=== PATIENT | female | born 1935 | race Caucasian/White ===

== ENCOUNTER → 2016-09-19 | Outpatient (CLI) | payer MEDICARE ==
[~2016-09-19] MED LIST: ASPIRIN325 M2 PO; ASPIRIN325 MG PO; ATENOLOL25 MG PO; AUGMENTIN 875 M1 TAB PO; B12100 MC1 PO; COREG6.25 MG PO; COZAAR100 MG PO; GLUCOPHAGE1000 MG PO; HYDR12.5C PO; LOSARTAN POTASS1 TA2 PO; LOSARTAN POTASS1 TA9 PO; LOTENSIN HCT 201 TAB PO; METFORMIN500 MG PO; METFORMIN750 M1 PO; NEURONTIN300 MG PO; PEPCID20 MG PO; PREVACID30 M1 PO; PRILOSEC20 MG PO; ROBITUSSIN AC 110 ML PO; TESSALON PERLE200 MG PO; TOPROL XL25 MG PO; VICODIN 5-3001 EACH PO; ZITHROMAX Z PA250 MG PO; [UNRECOGNIZED DRUG - OTHER]
== END | disposition home or self-care (01) ==
LOC: US 15:21
DX: E04.1 Nontoxic single thyroid nodule (principal); I65.23 Occlusion and stenosis of bilateral carotid arteries

== ENCOUNTER 2017-01-15 15:53 | Emergency (ER) | payer MEDICARE ==
[~2017-01-15] VITALS: Ht 162.5 cm; Wt 60.8 kg
[2017-01-15] MEDS ORDERED: CLARITIN10 MG PO (16:05)
[2017-01-15 16:49] LABS: BASO % 0.2 % (0.0-1.0); HEMATOCRIT 31.7 % (37.0-47.0); HEMOGLOBIN 10.6 g/dl (12.0-16.0); LYMPH % 9.6 % (27.0-41.0); MEAN CELL VOLUME 86.4 fl (81.0-99.0); MEAN CORPUSCULAR HGB 28.9 pg (27.0-31.0); MEAN CORPUSCULAR HGB CONC 33.4 g/dl (33.0-37.0); MEAN PLATELET VOLUME 10.7 fl (9.6-12.3); MONO % 9.2 % (3.0-9.0); NEUT # 8.7 10*3/uL (2.3-7.9); NEUT % 80.7 % (47.0-73.0); PLATELET COUNT AUTOMATED 153 10*3/uL (130-400); RED BLOOD COUNT 3.67 10*6/uL (4.10-5.10); WHITE BLOOD COUNT 10.8 10*3/uL (4.8-10.8)
[2017-01-15 17:03] LABS: ACT PARTIAL THROMBO TIME 32.3 SECONDS (20.8-31.5)
[2017-01-15 17:10] LABS: ALBUMIN 3.1 gm/dl (3.1-4.5); ALKALINE PHOSPHATASE 73 U/L (45-117); BUN 19 mg/dl (7-24); CHLORIDE 96 mmol/L (98-107); CREATININE 1.46 mg/dL (0.55-1.02); LIPASE 105 U/L (73-393); MAGNESIUM 1.2 mg/dL (1.5-2.1); POTASSIUM 3.3 mmol/L (3.5-5.1); SGOT/AST 15 IU/L (3-35); SGPT/ALT 18 U/L (12-78); SODIUM 132 mmol/L (136-145); TOTAL PROTEIN 7.1 gm/dL (6.4-8.2); TROPONIN I < 0.015 ng/ml (<0.045)
[2017-01-15 18:17] LABS: BILIRUBIN NEGATIVE (NEGATIVE); BLOOD 1+ (NEGATIVE); CLARITY CLOUDY (CLEAR); COLOR YELLOW (YELLOW); GLUCOSE NEGATIVE (NEGATIVE); KETONE NEGATIVE (NEGATIVE); LEUKO ESTERASE 2+ (NEGATIVE); NITRITE POSITIVE (NEGATIVE); SPECIFIC GRAVITY <= 1.005 (1.005-1.030); UROBILINOGEN 0.2 E.U./dl (0.2-1.0)
[2017-01-15 18:24] LABS: WBC 16-20 wbc/hpf (0-5)
[2017-01-15 18:25] LABS: BACTERIA 4+
[2017-01-15] MEDS ORDERED: bactrim ds PO (19:09)
== END 2017-01-15 19:25 | disposition home or self-care (01) ==
LOC: ED 15:53
PROVIDERS: Physician Assistant
DX: E86.0 Dehydration (principal); N39.0 Urinary tract infection, site not specified; E11.9 Type 2 diabetes mellitus without complications; K21.9 Gastro-esophageal reflux disease without esophagitis; I10 Essential (primary) hypertension; Z90.710 Acquired absence of both cervix and uterus; Z98.890 Other specified postprocedural states; Z98.41 Cataract extraction status, right eye; Z79.899 Other long term (current) drug therapy; Z88.5 Allergy status to narcotic agent

== ENCOUNTER → 2017-05-30 | Outpatient (CLI) | payer MEDICARE ==
[~2017-05-30] MED LIST changes: +CLARITIN10 MG PO; +bactrim ds PO
[2017-05-30 13:36] LABS: CREATININE 1.16 mg/dL (0.55-1.02)
== END | disposition home or self-care (01) ==
LOC: LAB 11:27
PROVIDERS: Internal Medicine
DX: R10.9 Unspecified abdominal pain (principal); R19.7 Diarrhea, unspecified

== ENCOUNTER → 2017-06-03 | Outpatient (CLI) | payer MEDICARE | END | disposition home or self-care (01) | LOC: CT 02:07 | DX: R19.7 Diarrhea, unspecified (principal); R10.84 Generalized abdominal pain; R11.0 Nausea; Z90.710 Acquired absence of both cervix and uterus; Z90.49 Acquired absence of other specified parts of digestive tract ==

== ENCOUNTER 2017-08-23 22:07 | Inpatient (IN) | payer MEDICARE ==
[~2017-08-23] VITALS: Ht 162.5 cm; Wt 61.0 kg
--- NOTE | ~2017-08-23 | WRIGHTHP ---
[place], [place] PATIENT HISTORY AND PHYSICAL EXAM NAME: MIKO BABCOCK [facility] #: [id number] UNIT #: [id number] ROOM: 519 DOCTOR: MALU EDOUARD MD BIRTHDATE: [birth year] DOS: 08/24/2017 HISTORY OF PRESENT ILLNESS: The patient is a 81-year-old female with a past medical history of: 1. Benign essential hypertension, type 2 diabetes mellitus, GERD, esophagitis, osteoarthritis involving multiple joints. 2. Chronic diastolic type congestive heart failure. The patient presented to the Emergency Department at [facility] with complaints of feeling dizzy and sick. In the Emergency Department, she was found to be severely hypertensive. The patient had found her blood pressures elevated at home and her magnesium levels were found to be very low and lactic acid level elevated. The patient was given intravenous magnesium and then oral magnesium after admission to the hospital and her dose of Norvasc was increased. Blood pressures were monitored. 3. The patient also complaining of chronic diarrhea with metformin, which she has taken for many years. REVIEW OF SYSTEMS: LUNGS: The patient had an episode of shortness of breath at home, but it resolved. CARDIOVASCULAR SYSTEM: No chest pains or palpitations. GASTROINTESTINAL: Chronic diarrhea. FAMILY HISTORY: Noncontributory. SOCIAL HISTORY: Denies smoking cigarettes, alcohol and drug abuse, but she does not follow a diabetic diet. ALLERGIES: Known allergies to SULFA AND CODEINE. PHYSICAL EXAMINATION: GENERAL: Alert and oriented x 3, in no visible distress. HEENT AND NECK: Extraocular movements are intact. Sclerae are anicteric. Oral mucosa is moist and clean. No obvious facial weakness. Neck is supple without any lymphadenopathy. No thyromegaly. No JVD. No carotid arterial bruits. LUNGS: Clear to auscultation. No wheezing. No rhonchi. CARDIOVASCULAR SYSTEM: Heart rate is regular in rate and rhythm. S1 and S2 normally audible. No significant murmur or any other abnormal cardiac sounds. ABDOMEN: Soft, nontender. No obvious organomegaly. Bowel sounds are present. No obvious herniation. EXTREMITIES: Without significant cyanosis or edema. Warm to touch. CENTRAL NERVOUS SYSTEM: Alert and oriented x 3. Cranial nerves II-XII are intact. Speech is normal. The patient is able to move all extremities. Normal muscle strength. Deep tendon reflexes are equal on both sides. Plantars were downgoing. LABORATORY DATA: Lactic acid levels showing elevation from 2.5-3.2 range. Magnesium level was low at 1.1, improved to 1.6 with extra magnesium supplements. Chest x-ray without acute abnormality. [place], [place] PATIENT HISTORY AND PHYSICAL EXAM NAME: MIKO BABCOCK UNIT #: [id number] ROOM: [facility] DOCTOR: MALU EDOUARD MD BIRTHDATE: [birth year] IMPRESSION: 1. The patient presenting with severe hypertension with underlying benign essential hypertension. Blood pressures improved with adjustment of her treatment and giving her calcium channel blockers. Blood pressure is being monitored closely on a monitored bed. 2. Significant hypomagnesemia related to chronic diarrhea from taking metformin. I am decreasing the doses. 3. Type 2 diabetes mellitus with reasonably controlled blood sugars. I monitor her blood sugars and decrease the dose of metformin to help her diarrhea. Hemoglobin A1c was 7.2. 4. Elevated lactic acid levels, although the patient is showing no signs of sepsis. 5. Gastroesophageal reflux disease and esophagitis, asymptomatic, proton pump inhibitor, Protonix. 6. History of cholecystectomy, which may also contribute to her diarrhea. 7. Elevation of BUN and elevation of creatinine to 1.26. I will start the patient on hydration with normal saline. This also apparently related to diarrhea. MALU EDOUARD MD CM:HISPHYS:PATIENT HISTORY AND PHYSICAL EXAMINATION [id number] MALU EDOUARD MD 08/24/17 0721 interface
--- NOTE | ~2017-08-23 | DS ---
[place], [place] DISCHARGE SUMMARY [id number] #: [id number] ROOM: 519 DOCTOR: MALU EDOUARD MD BIRTHDATE: [birth year] DOS: 08/25/2017 DISCHARGE DIAGNOSES: 1. Severe hypertension. 2. Acute hypomagnesemia. 3. Type 2 diabetes mellitus. 4. Gastroesophageal reflux disease and esophagitis. 5. History of cholecystectomy. 6. Dehydration with elevation of BUN and creatinine. 7. Type 2 diabetes mellitus. 8. History of osteoarthritis involving multiple large joints. 9. Chronic diastolic type congestive heart failure. HOSPITAL COURSE: The patient presented to the Emergency Department at [facility] feeling dizzy and sick. The patient was found to be severely hypertensive. The patient also had found her blood pressures to be elevated at home. The patient was found to be hypomagnesemic and she was complaining of chronic diarrhea with use of metformin, which she has taken for a very long time. The patient says she is noncompliant with diet and consumes plenty of sugars, but overall her sugars have been reasonably controlled with a hemoglobin A1c of 7.2. The patient's metformin was cut back to 850 mg twice a day and the patient's diarrhea has improved. Benign essential hypertension with severely elevated blood pressures at admission, have improved with increase in dose of Norvasc. The patient is asymptomatic now. Hypomagnesemia related to chronic diarrhea from taking metformin. I have put her on magnesium supplements and she was given intravenous magnesium in the Emergency Department. Her repeat magnesium level was normal. Type 2 diabetes mellitus with reasonably controlled blood sugars. I have reduced the patient's metformin to control her diarrhea. The patient also asked to stay away from sugars so that she does not need to be overmedicated with metformin. Gastroesophageal reflux disease and esophagitis, asymptomatic with Protonix. Previous history of cholecystectomy, which may also contribute to her diarrhea. Elevation of BUN and creatinine related to diarrhea and the patient is feeling sick. The patient was hydrated with IV fluids. Persistently elevated lactic acid levels of insignificant etiology. Because the patient is asymptomatic and feeling very well, no signs of any disease at the moment and the patient will be discharged to home in a stable condition to follow up as an outpatient with the PCP this week. DISCHARGE MEDICATIONS: Omeprazole 40 mg a day, metformin 850 mg b.i.d., losartan 100 mg daily, amlodipine 5 mg daily. [place], [place] DISCHARGE SUMMARY NAME: MIKO BABCOCK UNIT #: [id number] ROOM: [facility] DOCTOR: MALU EDOUARD MD BIRTHDATE: [birth year] Follow up with PCP this week. MALU EDOUARD MD CM:DISCHARG [id number] MALU EDOUARD MD 08/26/17 0144 interface
[2017-08-23 22:10] VITALS: BP 200/98
[2017-08-23 22:47] LABS: BASO % 0.4 % (0.0-1.0); EOS # 0.2 10*3/uL (0.0-0.4); EOS % 2.6 % (1.0-4.0); HEMATOCRIT 33.3 % (37.0-47.0); HEMOGLOBIN 10.6 g/dl (12.0-16.0); LYMPH # 2.2 10*3/uL (1.3-4.4); LYMPH % 30.3 % (27.0-41.0); MEAN CELL VOLUME 88.6 fl (81.0-99.0); MEAN CORPUSCULAR HGB 28.2 pg (27.0-31.0); MEAN CORPUSCULAR HGB CONC 31.8 g/dl (33.0-37.0); MEAN PLATELET VOLUME 11.9 fl (9.6-12.3); MONO # 0.5 10*3/uL (0.1-1.0); MONO % 7.1 % (3.0-9.0); NEUT # 4.2 10*3/uL (2.3-7.9); NEUT % 59.2 % (47.0-73.0); PLATELET COUNT AUTOMATED 195 10*3/uL (130-400); RED BLOOD COUNT 3.76 10*6/uL (4.10-5.10); RED CELL DISTRI WIDTH 13.4 % (0-14.5); WHITE BLOOD COUNT 7.2 10*3/uL (4.8-10.8)
[2017-08-23 22:54] VITALS: BP 157/82
[2017-08-23 22:54] LABS: INTERNATIONAL NORM RATIO 0.9 (2.0-3.5)
[2017-08-23 23:03] LABS: CREATININE 1.26 mg/dL (0.55-1.02); POTASSIUM 4.7 mmol/L (3.5-5.1); TOTAL PROTEIN 7.6 gm/dL (6.4-8.2)
[2017-08-23 23:04] LABS: TROPONIN I 0.018 ng/ml (<0.045)
[2017-08-23 23:10] LABS: THYROID STIM HORMONE (HS) 8.7 uIU/ml (0.358-4.75)
[2017-08-23 23:23] LABS: BILIRUBIN NEGATIVE (NEGATIVE); BLOOD NEGATIVE (NEGATIVE); CLARITY CLEAR (CLEAR); COLOR YELLOW (YELLOW); GLUCOSE NEGATIVE (NEGATIVE); KETONE NEGATIVE (NEGATIVE); LEUKO ESTERASE NEGATIVE (NEGATIVE); NITRITE NEGATIVE (NEGATIVE); PH 6.5 (5.0-9.0); SPECIFIC GRAVITY <= 1.005 (1.005-1.030); UROBILINOGEN 0.2 E.U./dl (0.2-1.0)
[2017-08-23 23:35] LABS: WBC 0-2 wbc/hpf (0-5)
[2017-08-24 00:21] VITALS: BP 141/81
[2017-08-24 00:45] VITALS: BP 142/90
[2017-08-24] MEDS ORDERED: GLUCOPHAGE500 M1 PO (01:36)
[2017-08-24] MEDS ORDERED: NORVASC2.5 MG PO (01:37)
[2017-08-24 08:00] VITALS: BP 140/88; BP 172/75
[2017-08-24 12:00] VITALS: BP 142/90; BP 173/77
[2017-08-24 16:00] VITALS: BP 142/65
[2017-08-24 20:00] VITALS: BP 146/88
[2017-08-25] VITALS: BP 138/77
[2017-08-25 12:00] VITALS: BP 158/81
[2017-08-25] MEDS ORDERED: AMLODIPINE BESYL5 MG PO (15:56)
[2017-08-25] MEDS ORDERED: METFOMIN HYDRO850 MG PO (15:56)
[2017-08-25] MEDS ORDERED: MAGNESIUM OXID400 MG PO (15:56)
[2017-08-25 16:00] VITALS: BP 149/72
== END 2017-08-25 17:10 | disposition home or self-care (01) | DRG 641 ==
LOC: ED 22:07 → EDHOLD 08-24 00:20 → 5E 08-24 00:32
PROVIDERS: Emergency Medicine Emergency Medical Services
DX: E83.42 Hypomagnesemia (principal); E11.9 Type 2 diabetes mellitus without complications; I50.32 Chronic diastolic (congestive) heart failure; I11.0 Hypertensive heart disease with heart failure; K21.0 Gastro-esophageal reflux disease with esophagitis; E86.0 Dehydration; Z66 Do not resuscitate; Z51.5 Encounter for palliative care; M19.90 Unspecified osteoarthritis, unspecified site; Z88.5 Allergy status to narcotic agent; Z79.84 Long term (current) use of oral hypoglycemic drugs; Z79.899 Other long term (current) drug therapy; Z90.49 Acquired absence of other specified parts of digestive tract; Z87.440 Personal history of urinary (tract) infections; Z98.41 Cataract extraction status, right eye; Z90.710 Acquired absence of both cervix and uterus; Z82.49 Family history of ischemic heart disease and other diseases of the circulatory system; Z80.9 Family history of malignant neoplasm, unspecified

== ENCOUNTER → 2017-10-03 | Outpatient (CLI) | payer MEDICARE ==
[~2017-10-03] MED LIST changes: +AMLODIPINE BESYL5 MG PO; +GLIMEPIRIDE4 M1 PO; +GLUCOPHAGE500 M1 PO; +LANSOPRAZOLE30 MG PO; +MAGNESIUM OXID400 MG PO; +METFOMIN HYDRO850 MG PO; +NORVASC2.5 MG PO; +ZOFRAN ODT4 MG SL
== END | disposition home or self-care (01) ==
LOC: CT 09:40
DX: I25.10 Atherosclerotic heart disease of native coronary artery without angina pectoris (principal); R91.8 Other nonspecific abnormal finding of lung field; Z90.710 Acquired absence of both cervix and uterus

== ENCOUNTER → 2017-10-30 | Outpatient (CLI) | payer MEDICARE ==
[2017-10-30 10:21] LABS: CREATININE 1.18 mg/dL (0.55-1.02)
== END | disposition home or self-care (01) ==
LOC: LAB 09:44
PROVIDERS: Internal Medicine
DX: E87.1 Hypo-osmolality and hyponatremia (principal)

== ENCOUNTER → 2018-02-12 | Outpatient (CLI) | payer MEDICARE ==
[2018-02-12 09:52] LABS: THYROXINE (T4) TOTAL 9.8 ug/dl (4.8-13.9)
[2018-02-12 10:00] LABS: THYROID STIM HORMONE (HS) 6.11 uIU/ml (0.358-4.75)
== END | disposition home or self-care (01) ==
LOC: LAB 08:30
PROVIDERS: Internal Medicine
DX: Z79.899 Other long term (current) drug therapy (principal)

== ENCOUNTER → 2018-05-21 | Outpatient (CLI) | payer MEDICARE | END | disposition home or self-care (01) | LOC: RAD 10:08 | DX: M47.817 Spondylosis without myelopathy or radiculopathy, lumbosacral region (principal); M48.07 Spinal stenosis, lumbosacral region; M43.27 Fusion of spine, lumbosacral region ==

== ENCOUNTER 2019-03-21 09:54 | Emergency (ER) | payer MEDICARE ==
[~2019-03-21] VITALS: Ht 162.5 cm; Wt 59.9 kg
[2019-03-21] MEDS ORDERED: AMOXICILLIN500 M2 PO (11:36)
[2019-03-21] MEDS ORDERED: PREDNISONE50 MG PO (11:36)
== END 2019-03-21 11:37 | disposition home or self-care (01) ==
LOC: ED 09:54
DX: J20.9 Acute bronchitis, unspecified (principal); Z88.2 Allergy status to sulfonamides; Z88.6 Allergy status to analgesic agent; Z79.899 Other long term (current) drug therapy

== ENCOUNTER → 2020-01-01 | Outpatient (CLI) | payer MEDICARE ==
[~2020-01-01] MED LIST changes: +AMOXICILLIN500 M2 PO; +PREDNISONE50 MG PO
== END | disposition home or self-care (01) ==
LOC: MRI 10:39
PROVIDERS: ATTEND Internal Medicine
DX: I67.82 Cerebral ischemia (principal)

== ENCOUNTER → 2020-10-04 | Outpatient (CLI) | payer MEDICARE ==
[2020-10-04 09:46] LABS: BASO % 0.3 % (0.0-1.0); EOS # 0.2 10*3/uL (0.0-0.4); EOS % 2.3 % (1.0-4.0); HEMATOCRIT 37.9 % (37.0-47.0); LYMPH # 2.1 10*3/uL (1.3-4.4); LYMPH % 31.5 % (27.0-41.0); MEAN CELL VOLUME 87.1 fl (81.0-99.0); MEAN CORPUSCULAR HGB 27.4 pg (27.0-31.0); MEAN CORPUSCULAR HGB CONC 31.4 g/dl (33.0-37.0); MEAN PLATELET VOLUME 11.6 fl (9.6-12.3); MONO # 0.5 10*3/uL (0.1-1.0); MONO % 7.3 % (3.0-9.0); NEUT # 3.9 10*3/uL (2.3-7.9); NEUT % 58.3 % (47.0-73.0); PLATELET COUNT AUTOMATED 205 10*3/uL (130-400); RED BLOOD COUNT 4.35 10*6/uL (4.10-5.10); RED CELL DISTRI WIDTH 14.2 % (0-14.5); WHITE BLOOD COUNT 6.6 10*3/uL (4.8-10.8)
[2020-10-04 10:26] LABS: CHLORIDE 107 mmol/L (98-107); POTASSIUM 4.2 mmol/L (3.5-5.1); SODIUM 139 mmol/L (136-145)
[2020-10-04 10:41] LABS: ALBUMIN 3.8 gm/dl (3.1-4.5); ALKALINE PHOSPHATASE 67 U/L (45-117); BUN 20 mg/dl (7-24); CHOLESTEROL 186 mg/dL (<200); CREATININE 1.01 mg/dL (0.55-1.02); LDL CHOLESTEROL 114 mg/dL (9-159); SGOT/AST 23 IU/L (3-35); SGPT/ALT 30 U/L (12-78); TOTAL PROTEIN 7.5 gm/dL (6.4-8.2); TRIGLYCERIDES 149 mg/dl (<150)
== END | disposition home or self-care (01) ==
LOC: RESCLI 08:38
PROVIDERS: Internal Medicine; ATTEND Student in an Organized Health Care Education/Training Program
DX: E11.9 Type 2 diabetes mellitus without complications (principal); I10 Essential (primary) hypertension; K21.9 Gastro-esophageal reflux disease without esophagitis; E03.9 Hypothyroidism, unspecified; Z88.8 Allergy status to other drugs, medicaments and biological substances; Z98.890 Other specified postprocedural states; Z90.710 Acquired absence of both cervix and uterus; Z79.899 Other long term (current) drug therapy

== ENCOUNTER → 2020-11-04 | Outpatient (CLI) | payer MEDICARE | END | disposition home or self-care (01) | LOC: RESCLI 00:35 | PROVIDERS: ATTEND Internal Medicine | DX: E11.9 Type 2 diabetes mellitus without complications (principal); I10 Essential (primary) hypertension; K21.9 Gastro-esophageal reflux disease without esophagitis; E03.9 Hypothyroidism, unspecified; E78.5 Hyperlipidemia, unspecified; M19.90 Unspecified osteoarthritis, unspecified site; Z79.899 Other long term (current) drug therapy; Z88.8 Allergy status to other drugs, medicaments and biological substances; Z98.890 Other specified postprocedural states; Z79.84 Long term (current) use of oral hypoglycemic drugs ==

== ENCOUNTER → 2020-12-23 | Outpatient (CLI) | payer MEDICARE | END | disposition home or self-care (01) | LOC: RESCLI 01:12 | PROVIDERS: ATTEND Internal Medicine | DX: E11.9 Type 2 diabetes mellitus without complications (principal); I10 Essential (primary) hypertension; K21.9 Gastro-esophageal reflux disease without esophagitis; E03.9 Hypothyroidism, unspecified; E78.5 Hyperlipidemia, unspecified; M19.90 Unspecified osteoarthritis, unspecified site; Z79.82 Long term (current) use of aspirin; Z79.899 Other long term (current) drug therapy; Z90.710 Acquired absence of both cervix and uterus; Z98.890 Other specified postprocedural states ==

== ENCOUNTER → 2021-01-04 | Outpatient (CLI) | payer MEDICARE | END | disposition home or self-care (01) | LOC: CARD 10:18 | PROVIDERS: ATTEND Internal Medicine | DX: I05.8 Other rheumatic mitral valve diseases (principal); R06.02 Shortness of breath ==

== ENCOUNTER → 2021-06-23 | Outpatient (CLI) | payer MEDICARE | END | disposition home or self-care (01) | LOC: RESCLI 03:40 | PROVIDERS: ATTEND Internal Medicine | DX: E11.9 Type 2 diabetes mellitus without complications (principal); E03.9 Hypothyroidism, unspecified; I10 Essential (primary) hypertension; E78.5 Hyperlipidemia, unspecified; G60.9 Hereditary and idiopathic neuropathy, unspecified; Z88.8 Allergy status to other drugs, medicaments and biological substances; K21.9 Gastro-esophageal reflux disease without esophagitis; Z79.899 Other long term (current) drug therapy; M19.90 Unspecified osteoarthritis, unspecified site ==

== ENCOUNTER → 2021-07-12 | Outpatient (CLI) | payer MEDICARE ==
[2021-07-12 09:51] LABS: BASO % 0.1 % (0.0-1.0); EOS % 0.1 % (1.0-4.0); HEMATOCRIT 36.8 % (37.0-47.0); LYMPH # 1.7 10*3/uL (1.3-4.4); LYMPH % 25.9 % (27.0-41.0); MEAN CORPUSCULAR HGB CONC 31.8 g/dl (33.0-37.0); MEAN PLATELET VOLUME 11.8 fl (9.6-12.3); MONO # 0.4 10*3/uL (0.1-1.0); NEUT # 4.5 10*3/uL (2.3-7.9); NEUT % 67.8 % (47.0-73.0); PLATELET COUNT AUTOMATED 216 10*3/uL (130-400); RED BLOOD COUNT 4.33 10*6/uL (4.10-5.10); RED CELL DISTRI WIDTH 14.6 % (0-14.5); WHITE BLOOD COUNT 6.7 10*3/uL (4.8-10.8)
[2021-07-12 10:10] LABS: ALKALINE PHOSPHATASE 81 U/L (45-117); BUN 24 mg/dl (7-24); CHLORIDE 104 mmol/L (98-107); CHOLESTEROL 154 mg/dL (<200); CREATININE 0.92 mg/dL (0.55-1.02); LDL CHOLESTEROL 83 mg/dL (9-159); POTASSIUM 4.2 mmol/L (3.5-5.1); SGOT/AST 20 IU/L (3-35); SGPT/ALT 50 U/L (12-78); SODIUM 137 mmol/L (136-145); TOTAL PROTEIN 7.7 gm/dL (6.4-8.2); TRIGLYCERIDES 130 mg/dl (<150)
== END | disposition home or self-care (01) ==
LOC: RAD 08:36
PROVIDERS: Internal Medicine; ATTEND Internal Medicine
DX: E11.9 Type 2 diabetes mellitus without complications (principal); E03.9 Hypothyroidism, unspecified; E78.5 Hyperlipidemia, unspecified; R06.02 Shortness of breath

== ENCOUNTER → 2021-11-22 | Outpatient (CLI) | payer MEDICARE | END | disposition home or self-care (01) | LOC: COVID19 11-21 16:09 | PROVIDERS: ATTEND Internal Medicine | DX: U07.1 COVID-19 (principal) ==

== ENCOUNTER → 2021-12-05 | Outpatient (CLI) | payer MEDICARE | END | disposition home or self-care (01) | LOC: RAD 13:47 | PROVIDERS: ATTEND Internal Medicine | DX: I10 Essential (primary) hypertension (principal); Z78.0 Asymptomatic menopausal state; R29.890 Loss of height ==

== ENCOUNTER → 2022-08-03 | Outpatient (CLI) | payer MEDICARE | END | disposition home or self-care (01) | LOC: CT 00:44 | PROVIDERS: ATTEND Internal Medicine | DX: J43.9 Emphysema, unspecified (principal); R91.1 Solitary pulmonary nodule; R91.8 Other nonspecific abnormal finding of lung field; K44.9 Diaphragmatic hernia without obstruction or gangrene; I25.10 Atherosclerotic heart disease of native coronary artery without angina pectoris ==

== ENCOUNTER → 2022-09-11 | Outpatient (CLI) | payer MEDICARE | END | disposition home or self-care (01) | LOC: RESCLI 01:24 | PROVIDERS: ATTEND Internal Medicine | DX: E11.9 Type 2 diabetes mellitus without complications (principal); I10 Essential (primary) hypertension; G60.9 Hereditary and idiopathic neuropathy, unspecified; E03.9 Hypothyroidism, unspecified; K21.9 Gastro-esophageal reflux disease without esophagitis; M19.90 Unspecified osteoarthritis, unspecified site; E78.5 Hyperlipidemia, unspecified; J45.20 Mild intermittent asthma, uncomplicated; Z88.2 Allergy status to sulfonamides; Z88.8 Allergy status to other drugs, medicaments and biological substances; Z98.890 Other specified postprocedural states; Z79.84 Long term (current) use of oral hypoglycemic drugs; Z79.899 Other long term (current) drug therapy ==

== ENCOUNTER → 2022-11-13 | Outpatient (CLI) | payer MEDICARE ==
[2022-11-13 10:10] LABS: BASO % 0.3 % (0.0-1.0); EOS # 0.2 10*3/uL (0.0-0.4); EOS % 2.1 % (1.0-4.0); HEMATOCRIT 40.5 % (37.0-47.0); LYMPH # 2.9 10*3/uL (1.3-4.4); LYMPH % 38.5 % (27.0-41.0); MEAN CORPUSCULAR HGB 28.6 pg (27.0-31.0); MEAN CORPUSCULAR HGB CONC 32.1 g/dl (33.0-37.0); MEAN PLATELET VOLUME 11.7 fl (9.6-12.3); MONO # 0.6 10*3/uL (0.1-1.0); MONO % 7.7 % (3.0-9.0); NEUT # 3.8 10*3/uL (2.3-7.9); NEUT % 51.1 % (47.0-73.0); PLATELET COUNT AUTOMATED 200 10*3/uL (130-400); RED BLOOD COUNT 4.55 10*6/uL (4.10-5.10); RED CELL DISTRI WIDTH 15.3 % (0-14.5); WHITE BLOOD COUNT 7.5 10*3/uL (4.8-10.8)
[2022-11-13 10:41] LABS: ALKALINE PHOSPHATASE 62 U/L (46-116); BUN 15 mg/dl (9-23); CHLORIDE 105 mmol/L (98-107); CHOLESTEROL 154 mg/dL (<200); FREE T4 1.06 ng/dl (0.89-1.76); LDL CHOLESTEROL 73 mg/dL (9-159); POTASSIUM 4.4 mmol/L (3.4-5.1); SGPT/ALT 19 U/L (10-49); TOTAL PROTEIN 7.4 gm/dL (6.0-8.0); TRIGLYCERIDES 155 mg/dl (<150)
[2022-11-13 11:15] LABS: VITAMIN D, 25-HYDROXY 42.3 ng/mL (30-100)
== END | disposition home or self-care (01) ==
LOC: LAB 09:20
PROVIDERS: ATTEND Internal Medicine
DX: Z13.0 Encounter for screening for diseases of the blood and blood-forming organs and certain disorders involving the immune mechanism (principal); Z13.1 Encounter for screening for diabetes mellitus; Z13.21 Encounter for screening for nutritional disorder; Z13.220 Encounter for screening for lipoid disorders; Z13.228 Encounter for screening for other metabolic disorders; Z13.29 Encounter for screening for other suspected endocrine disorder; Z13.6 Encounter for screening for cardiovascular disorders; Z13.89 Encounter for screening for other disorder; Z13.9 Encounter for screening, unspecified; I10 Essential (primary) hypertension; F41.1 Generalized anxiety disorder; D51.9 Vitamin B12 deficiency anemia, unspecified; E55.9 Vitamin D deficiency, unspecified; Z79.899 Other long term (current) drug therapy

== ENCOUNTER → 2023-09-11 | Outpatient (CLI) | payer MEDICARE | END | disposition home or self-care (01) | LOC: RESCLI 01:47 | PROVIDERS: ATTEND Internal Medicine | DX: E11.9 Type 2 diabetes mellitus without complications (principal); I10 Essential (primary) hypertension; J45.20 Mild intermittent asthma, uncomplicated; K21.9 Gastro-esophageal reflux disease without esophagitis; E03.9 Hypothyroidism, unspecified; Z79.899 Other long term (current) drug therapy; Z90.49 Acquired absence of other specified parts of digestive tract; Z98.890 Other specified postprocedural states; Z88.8 Allergy status to other drugs, medicaments and biological substances ==

== ENCOUNTER → 2023-11-13 | Outpatient (CLI) | payer MEDICARE ==
[~2023-11-13] MED LIST changes: +IOHEXOL 300 MG/ML 100 ML VIAL IV ONE
[2023-11-13 08:12] LABS: BASO % 0.3 % (0.0-1.0); EOS # 0.2 10*3/uL (0.0-0.4); EOS % 2.3 % (1.0-4.0); HEMATOCRIT 38.1 % (37.0-47.0); LYMPH # 3.6 10*3/uL (1.3-4.4); LYMPH % 51.3 % (27.0-41.0); MEAN CELL VOLUME 87.8 fl (81.0-99.0); MEAN CORPUSCULAR HGB CONC 33.1 g/dl (33.0-37.0); MEAN PLATELET VOLUME 11.4 fl (9.6-12.3); MONO # 0.5 10*3/uL (0.1-1.0); MONO % 7.5 % (3.0-9.0); NEUT # 2.7 10*3/uL (2.3-7.9); NEUT % 38.3 % (47.0-73.0); PLATELET COUNT AUTOMATED 183 10*3/uL (130-400); RED BLOOD COUNT 4.34 10*6/uL (4.10-5.10); RED CELL DISTRI WIDTH 13.8 % (0-14.5); WHITE BLOOD COUNT 7.1 10*3/uL (4.8-10.8)
[2023-11-13 08:46] LABS: FREE T4 1.2 ng/dl (0.89-1.76); POTASSIUM 4.3 mmol/L (3.4-5.1); TOTAL PROTEIN 7.3 gm/dL (6.0-8.0)
[2023-11-13 12:03] LABS: VITAMIN D, 25-HYDROXY 43.6 ng/mL (30-100)
== END | disposition home or self-care (01) ==
LOC: LAB 00:36 → CT 09:00 → LAB 09:00
PROVIDERS: ATTEND Internal Medicine
DX: J43.9 Emphysema, unspecified (principal); I10 Essential (primary) hypertension; E11.65 Type 2 diabetes mellitus with hyperglycemia; D51.9 Vitamin B12 deficiency anemia, unspecified; E78.2 Mixed hyperlipidemia; E55.9 Vitamin D deficiency, unspecified; E03.9 Hypothyroidism, unspecified; R91.8 Other nonspecific abnormal finding of lung field; I25.10 Atherosclerotic heart disease of native coronary artery without angina pectoris; J44.9 Chronic obstructive pulmonary disease, unspecified

== ENCOUNTER → 2024-01-20 | Outpatient (CLI) | payer MEDICARE ==
[~2024-01-20] MED LIST changes: -IOHEXOL 300 MG/ML 100 ML VIAL IV ONE
== END | disposition home or self-care (01) ==
LOC: US 01:52
PROVIDERS: ATTEND Internal Medicine
DX: R79.89 Other specified abnormal findings of blood chemistry (principal)